=== PATIENT | female | born 1960 | race Caucasian/White ===

== ENCOUNTER 2020-11-22 14:00 | Outpatient (CLI) | payer BC ==
--- NOTE | 2020-11-24 08:36 | Mammography Report ---
DIGITAL DIAGNOSTIC MAMMOGRAM WITH CAD , 11/22/2020 CLINICAL INFORMATION / INDICATION: Patient presented for screening mammogram. After mammogram was per formed, patient stated she was feeling palpable lumps bilaterally. TECHNIQUE: Digital bilateral mammographic imaging was performed. This examination was interpreted with the benefit of Computer-aided Detection analysis. COMPARISON: Prior mammogram 04/03/2016 FINDINGS: Breast Density: The breasts are heterogeneously dense, which may obscure small masses. No dominant mass, suspicious calcifications or architectural distortion in either breast. A biopsy cl ip is present in the 12:00 position of the left breast. Overall, no interval change. No mammographic correlate is noted to account for the complaint of bilateral breast lumps. IMPRESSION: No mammographic evidence of malignancy. Specifically, no mammographic correlate is seen t o account for the patient's complaint of bilateral lumps. Further evaluation with bilateral breast ul trasound can be performed if physical exam is suspicious. Follow up recommendation: Clinical exam BI-RADS Category 2: Benign. A "normal" or negative report should not discourage follow up or biopsy of a clinically significant f inding. A written summary of these findings will be mailed to the patient. The patient will be entered into a mammography reporting system which will generate a reminder letter for the patient's next appointmen t at the appropriate interval. According to the [employer], yearly mammograms are recommended starting at age 40 and continuing as long as a woman is in good health. Breast MRI is recommended for women with an eunice roximately 20-25% or greater lifetime risk of breast cancer, including women with a strong family his tory of breast or ovarian cancer and women who have been treated for Hodgkin's disease. Signer Name: Cherie Villanueva MD Signed: 11/24/2020 8:32 AM Workstation Name: [id number]
== END 2020-11-22 14:01 | disposition home or self-care (01) ==
LOC: MAMMO 14:00
PROVIDERS: ATTEND Obstetrics & Gynecology
DX: R92.8 Other abnormal and inconclusive findings on diagnostic imaging of breast (principal)
CPT/HCPCS: 77066